=== PATIENT | female | born 1950 | race Caucasian/White ===

== ENCOUNTER → 2023-12-13 12:57 | Outpatient (BNVA) | payer OTHER, SELFPAY | PROVIDERS: Visit Provider Registered Nurse | DX: S80.02XD Contusion of left knee, subsequent encounter (principal); S30.0XXD Contusion of lower back and pelvis, subsequent encounter; W18.30XD Fall on same level, unspecified, subsequent encounter | CPT/HCPCS: 72100; 72220; 99204 ==

== ENCOUNTER → 2023-12-17 09:15 | Outpatient (BNVA) | payer OTHER, SELFPAY | PROVIDERS: Visit Provider Registered Nurse | DX: S80.02XD Contusion of left knee, subsequent encounter (principal); S30.0XXD Contusion of lower back and pelvis, subsequent encounter; W18.30XD Fall on same level, unspecified, subsequent encounter | CPT/HCPCS: 99214 ==

== ENCOUNTER → 2023-12-27 15:24 | Outpatient (BNVA) | payer OTHER, SELFPAY | PROVIDERS: Visit Provider Registered Nurse | DX: S30.0XXD Contusion of lower back and pelvis, subsequent encounter (principal); S80.02XD Contusion of left knee, subsequent encounter; W18.30XD Fall on same level, unspecified, subsequent encounter | CPT/HCPCS: 99213 ==